=== PATIENT | female | born 1960 | race Caucasian/White ===

== ENCOUNTER 2022-12-13 06:15 | Day surgery (SDC) | payer OTHER ==
[~2022-12-13 06:15] MED LIST: Lactated Ringers 1,000 ML IV SCH; Sodium Chloride 0.9% 10 ML Syringe FLUSH PRN
[2022-12-13] MEDS ORDERED: Lidocaine 2% 5 ML SDV IV ONE (06:16)
[2022-12-13] MEDS ORDERED: Propofol 200 MG/20 ML SDV IV ONE (06:16)
[2022-12-13] MEDS ORDERED: Simethicone Drops 40 MG/0.6 ML 30 ML Bottle ONE (08:51)
== END 2022-12-13 08:52 | disposition home or self-care (01) ==
LOC: FB.SDS 06:15
PROVIDERS: ATTEND Surgery
DX: Z12.11 Encounter for screening for malignant neoplasm of colon (principal); K57.30 Diverticulosis of large intestine without perforation or abscess without bleeding; E78.5 Hyperlipidemia, unspecified; Z80.0 Family history of malignant neoplasm of digestive organs; Z79.899 Other long term (current) drug therapy; Z79.82 Long term (current) use of aspirin; Z88.5 Allergy status to narcotic agent; Z98.890 Other specified postprocedural states; Z90.710 Acquired absence of both cervix and uterus
CPT/HCPCS: 00811; A9270-GY; J2704; J7120

== ENCOUNTER 2024-04-01 06:42 | Day surgery (SDC) | payer MEDICARE, OTHER ==
[2024-04-01] MEDS ORDERED: Midazolam 1 MG/ML 2 ML SDV IV ONE (06:43)
[2024-04-01] MEDS ORDERED: Propofol 200 MG/20 ML SDV IV ONE (06:43)
[2024-04-01] MEDS ORDERED: Lidocaine 2% 100 MG/5 ML Syringe IVPUSH ONE (06:43)
[2024-04-01] MEDS ORDERED: Sodium Chloride 0.9% 10 ML Syringe FLUSH PRN (06:45)
[2024-04-01] MEDS: Lactated Ringers 1,000 ML IV SCH (07:48)
[2024-04-01] MEDS: Simethicone Drops 40 MG/0.6 ML 30 ML Bottle ONE (08:18)
== END 2024-04-01 09:54 | disposition home or self-care (01) ==
LOC: FB.SDS 06:42
PROVIDERS: ATTEND Surgery
DX: Z12.11 Encounter for screening for malignant neoplasm of colon (principal); K57.30 Diverticulosis of large intestine without perforation or abscess without bleeding; K56.609 Unspecified intestinal obstruction, unspecified as to partial versus complete obstruction; E78.5 Hyperlipidemia, unspecified; R19.5 Other fecal abnormalities; Z80.0 Family history of malignant neoplasm of digestive organs; Z79.899 Other long term (current) drug therapy; Z79.82 Long term (current) use of aspirin; Z88.5 Allergy status to narcotic agent
CPT/HCPCS: 00811; A9270-GY; J2250; J2704; J7120